=== PATIENT | female | born 2000 | race Two or more races ===

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

== ENCOUNTER 2022-02-23 20:49 | Emergency (ER) | payer BC, OTHER ==
[~2022-02-23] VITALS: Ht 154.9 cm; Wt 46.3 kg
--- NOTE | 2022-02-23 21:03 | NUR ---
BIBSELF C/O SLIGHT CHEST TIGHTNESS +DRY THROAT X2 DAYS. HAD NEGATIVE COVID TEST 2 DAYS AGO. RR EVEN AND UNLAOBRED.
--- NOTE | 2022-02-23 21:27 | NUR ---
er neonatal nurse practitioner at bedside
--- NOTE | 2022-02-23 21:27 | NUR ---
xray at bedside
[2022-02-23 21:45] LABS: BASOPHILS % (AUTO) 0.3 % (0.0-2.0); EOSINOPHILS % (AUTO) 1.1 % (0.0-6.0); HEMATOCRIT 36 % (33-45); HEMOGLOBIN 12.6 g/dL (11.5-14.8); LYMPHOCYTES # (AUTO) 1.3 K/uL (0.8-4.8); LYMPHOCYTES % (AUTO) 19.2 % (20.0-44.0); MEAN CORPUSCULAR HGB CONC 35 g/dl (31.0-36.0); MEAN CORPUSCULAR VOLUME 94 fL (82-100); MONOCYTES # (AUTO) 0.5 K/uL (0.1-1.30); MONOCYTES % (AUTO) 7.8 % (2.0-12.0); NEUTROPHILS # (AUTO) 4.9 K/uL (1.8-8.9); NEUTROPHILS % (AUTO) 71.6 % (43.0-81.0); PLATELET COUNT (AUTO) 300 K/uL (150-450); RED BLOOD CELL COUNT(AUTO) 3.86 MIL/uL (4.0-5.2); WHITE BLOOD COUNT (AUTO) 6.8 K/uL (4.3-11.0)
[2022-02-23 21:53] LABS: CALCIUM, SERUM 8.9 mg/dL (8.5-10.1); CARBON DIOXIDE 28 mmol/L (21-32); CHLORIDE 104 mmol/L (98-107); CREATININE 0.6 mg/dL (0.6-1.3); GLUCOSE 83 mg/dL (74-106); POTASSIUM 3.4 mmol/L (3.5-5.1); SODIUM SERUM 137 mmol/L (136-145); UREA NITROGEN, BLOOD 9 mg/dL (7-18)
[2022-02-24 00:33] VITALS: BP 123/88
--- NOTE | 2022-02-24 00:33 | NUR ---
Patient discharged to home in stable condition. Written and verbal after care instructions given. Patient verbalizes understanding of instruction.
== END 2022-02-24 00:33 | disposition home or self-care (01) ==
LOC: ER 20:53
DX: R06.02 Shortness of breath (principal)
CPT/HCPCS: 36415; 71046; 80048-TC; 84484-TC; 85025-TC